=== PATIENT | male | born 2000 | race Caucasian/White ===

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

== ENCOUNTER 2021-12-13 14:38 | Emergency (ER) | payer OTHER, SELFPAY ==
--- NOTE | ~2021-12-13 | XR_ITS ---
XR hand LT min 3V DATE: 12/13/2021 17:16 INDICATION: Injury, pain TECHNIQUE: 3 views COMPARISON: None FINDINGS: No fracture or dislocation, periosteal reaction or bone destruction, erosive change or renato drocalcinosis. e IMPRESSION: Negative Reviewed, dictated and finalized at location A. R MARKER IMPRESSION: Negative
--- NOTE | ~2021-12-13 | XR_ITS ---
XR wrist LT min 3V DATE: 12/13/2021 17:17 INDICATION: Injury, left wrist and hand pain TECHNIQUE: 4 views COMPARISON: None FINDINGS: No fracture or dislocation, periosteal reaction or bone destruction. Joint spaces are prese rved. No erosive change or chondrocalcinosis. IMPRESSION: Negative left wrist Reviewed, dictated and finalized at location A. WORKER IMPRESSION: Negative left wrist
[2021-12-13 14:40] VITALS: BP 149/91; PULSE 101; RESP 16; TEMP 37.1; O2SAT 99
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
[2021-12-13 18:14] VITALS: BP 102/88; PULSE 80; RESP 18; O2SAT 98
== END 2021-12-13 18:15 | disposition home or self-care (01) ==
PROVIDERS: Emergency Provider Emergency Medicine; PCP Pediatrics
DX: M79.642 Pain in left hand (principal); F84.0 Autistic disorder
CPT/HCPCS: 73110; 73130; 99283

== ENCOUNTER 2022-08-22 12:04 | Emergency (ER) | payer OTHER, SELFPAY ==
--- NOTE | ~2022-08-22 | XR_ITS ---
XR chest 2V DATE: 08/22/2022 14:04 INDICATION: Productive cough TECHNIQUE: PA and lateral views COMPARISON: 05/03/2020 portable AP chest FINDINGS: There is bilateral hyperinflation. No pulmonary infiltrate or consolidation, pleural effusi on or pulmonary vascular congestion or pneumothorax. No hilar or mediastinal enlargement. Normal heart size. There is minimal levoscoliosis of the thoracic spine. IMPRESSION: Bilateral hyperinflation; no evidence of pneumonia Reviewed, dictated and finalized at location A. Y COOKER HELPER
[2022-08-22 12:12] VITALS: BP 130/98; PULSE 72; RESP 18; TEMP 37.1; O2SAT 100
[2022-08-22 12:40] LABS: Basophils Percent Auto 0.2 % (0.2-1.2); Eosinophils Percent Auto 0.9 % (0-4.4); Hematocrit 46.1 % (42.0-52.0); Hemoglobin 16.1 g/dL (14.0-18.0); Immature Granulocyte Absolute 0.01 K/mm3 (0.00-0.031); Immature Granulocyte Percent A 0.2 % (0-0.5); Lymphocytes Absolute Auto 1.78 K/mm3 (0.9-3.2); Lymphocytes Percent Auto 40.9 % (18.3-44.2); Mean Corpuscular HGB Conc 34.9 g/dl (32-36); Mean Corpuscular Hemoglobin 31.1 pg (26-34); Mean Corpuscular Volume 89.2 fl (80-100); Mean Platelet Volume 9.4 fl (7.4-10.4); Monocytes Absolute Auto 0.4 K/mm3 (0.1-0.6); Neutrophils Absolute Auto 2.1 K/mm3 (1.3-6.7); Neutrophils Percent Auto 48.8 % (45.5-73.1); Platelet Count Result 246 k/mm3 (150-375); Red Blood Count 5.17 M/mm3 (4.6-6.20); Red Cell Distribution Width 11.6 % (11.5-14.5); White Blood Count 4.4 K/mm3 (4.5-10.0)
[2022-08-22 12:50] LABS: Alanine Aminotransferase 16 U/L (6-50); Albumin Level 4.7 g/dL (3.5-5.1); Alkaline Phosphatase 48 U/L (38-126); Anion Gap 13 mmol/L (8-16); Aspartate Amino Transferase 28 U/L (17-59); Bilirubin,Total 0.7 mg/dL (0.2-1.3); Blood Urea Nitrogen 15 mg/dL (9-20); Calcium 9.1 mg/dL (8.4-10.2); Carbon Dioxide 26 mmol/L (22-30); Chloride 105 mmol/L (98-107); Estimated CRCL calculation 100 ml/min; Estimated Glomerular Filt Rate > 60; Glucose 98 mg/dL (65-110); Lipase 84 U/L (23-300); Potassium 4.2 mmol/L (3.4-5.0); Sodium 144 mmol/L (137-145)
[2022-08-22 13:17] LABS: Appearance Urine Clear (Clear); Bilirubin Urine Negative (Negative); Blood Urine Negative (Negative); Color Urine Yellow (Yellow); Glucose Urine UA Negative (Negative); Ketones Urine Negative (Negative); Leukocyte Esterase Ur Negative LEU/UL (Negative); Nitrate Urine Negative (Negative); Protein Urine Negative (Negative); Urobilinogen Urine 0.2 mg/dL (<2.0)
--- NOTE | 2022-08-22 13:42 | ED.NAVMDI ---
HPI - Nausea/Vomiting/Diarrhea General Chief complaint: Nausea/Vomiting/Diarrhea Stated complaint: cough, headache Time Seen by Provider: 08/22/22 13:03 History of Present Illness HPI Narrative: Patient is a 21-year-old male presenting with cough, headache, nausea. Patient states that for the last several days he has had a productive cough as well as persistent nausea. States that he has not really vomited but he feels like he is about to. States he has been unable to eat and only able to drink a small amount. States that he has some epigastric pain. States that today he also has a headache. He denies fevers, chest pain, palpitations, lightheadedness, dysuria, leg swelling. States he had an episode of diarrhea earlier today. Related Data Home Medications Medication Instructions Recorded Confirmed dextroamphetamine-amphetamine 15 05/07/20 mg tablet Allergies Allergy/AdvReac Type Severity Reaction Status Date / Time No Known Drug Allergies Allergy Unknown Verified 08/22/22 15:16 Review of Systems Review of Systems: All systems reviewed & are unremarkable except as noted in HPI and below PMFSH Past Medical History Medical History (Updated 08/23/22 @ 00:01 by Jarrell Segovia) Autism Surgical History Surgical History No pertinent past surgical history Social History Social History Smoking status: Never smoker Alcohol intake: never Substance use: current Substance use type: marijuana Gender identity (if verbalized by the patient): Male Exam Narrative: GENERAL: Well-appearing, well-nourished, and in no acute distress. HEAD: Normocephalic, atraumatic. EYES: PERRLA and EOMI. ENT: Nares clear, no rhinorrhea or epistaxis. Mucous membranes moist. NECK: Supple. CHEST: Crackles bilaterally, scattered wheezing on right. No respiratory distress. HEART: Regular rate and rhythm. No murmur heard. Normal peripheral pulses. ABDOMEN: Soft, nontender, nondistended, normal active bowel sounds. EXTREMITIES: Normal range of motion. No edema. SKIN: Warm, dry, no rash. NEURO: No focal deficits. Alert and oriented x3. PSYCH: Normal mood and affect. Course Vital Signs Vital signs: Vital Signs Temperature 98.7 F 08/22/22 12:12 Pulse Rate 72 08/22/22 12:12 Respiratory Rate 18 08/22/22 12:12 Blood Pressure 130/98 H 08/22/22 12:12 Pulse Oximetry 100 08/22/22 12:12 Temperature 98.7 F 08/22/22 12:12 Pulse Rate 68 08/22/22 17:00 Respiratory Rate 16 08/22/22 17:00 Blood Pressure 128/76 08/22/22 17:00 Pulse Oximetry 99 08/22/22 17:00 MDM - Nausea/Vomiting/Diarrhea MDM Narrative Medical decision making narrative: Patient is a 21-year-old male presenting with cough, nausea, headache. Vitals within normal limits. Exam remarkable for the above. X-ray shows no acute abnormalities. No focal consolidations. Blood work shows remarkable for a very mild leukopenia. Patient is positive for influenza A. On reevaluation, patient reports improvement in his symptoms. Informed him of influenza, discussed appropriate supportive care. Will prescribe short course of Zofran. Appropriate return precautions were given. Patient voiced understanding and is agreeable with plan. Discharged in stable condition. Lab Data Result diagrams: 08/22/22 12:28 08/22/22 12:28 Labs: Lab Results 08/22/22 08/22/22 08/22/22 Range/Units 12:28 12:28 12:28 WBC 4.4 L (4.5-10.0) K/mm3 RBC 5.17 (4.6-6.20) M/mm3 Hgb 16.1 (14.0-18.0) g/dL Hct 46.1 (42.0-52.0) % MCV 89.2 (80-100) fl MCH 31.1 (26-34) pg MCHC 34.9 (32-36) g/dl RDW 11.6 (11.5-14.5) % Plt Count 246 (150-375) k/mm3 MPV 9.4 (7.4-10.4) fl Immature Gran % (Auto) 0.2 (0-0.5) % Neut % (Auto) 48.8 (45.5-73.1) % Lymph % (Auto) 40.9 (
[2022-08-22 14:22] LABS: Add Urine Microscopic? NO
[2022-08-22 14:53] LABS: Influenza A QL RT-PCR Positive (Negative); Influenza B QL RT-PCR Negative (Negative); SARS-CoV-2 RNA PCR Negative
[2022-08-22] MEDS: SODIUM CHLORIDE 0.9% IV 1,000 ML 999 ML IV CONT (15:26)
[2022-08-22] MEDS: ONDANSETRON INJ 4 MG/2 ML VIAL IV PUSH (15:27)
[2022-08-22] MEDS: FAMOTIDINE 20 MG/2 ML VIAL IV PUSH (15:27)
--- NOTE | 2022-08-22 15:27 | PC.NURSE ---
patient name and verified prior to manual barcode entry for medications due to room 19 equipment failure.
[2022-08-22] MEDS: hydrOXYzine HCL 25 MG TABLET 50 MG PO (16:51)
[2022-08-22 17:00] VITALS: BP 128/76; PULSE 68; RESP 16; O2SAT 99
== END 2022-08-22 17:01 | disposition home or self-care (01) ==
PROVIDERS: Emergency Medicine; Emergency Provider Emergency Medicine
DX: J10.1 Influenza due to other identified influenza virus with other respiratory manifestations (principal); R11.2 Nausea with vomiting, unspecified; Z20.822 Contact with and (suspected) exposure to COVID-19
CPT/HCPCS: 36415; 71046; 80053; 81003; 83690; 85025; 87636; 96361; 96374; 96375; 99284; A9270; J2405; J7030